=== PATIENT | male | born 1975 | race Caucasian/White ===

== ENCOUNTER → 2018-01-22 12:40 | Outpatient (CLI) | payer OTHER, SELFPAY ==
--- NOTE | 2018-01-22 12:41 | DI.ECHO.S_ITS ---
[facility]---------+ [facility] +---------+ : : [address] : : : : [id number] : : : : Phone: [phone]+ Echocardiogram Report + + :Name: WOODY LLOYD Study Date: 01/22/2018 Height: 74 in : :[facility] Weight: 248 lb : : Gender: Male BSA: 2.4 m2 : :: 1975 Age: 42 yrs BP: 118/76 mmHg: :Reason For Study: Chest pain : : Performed By: Constanza Moya : :Referring: MOISÉS DAVIS : + + Interpretation Summary The left ventricle is normal in size, wall thickness, and systolic function without any focal wall motion abnormalities with the ejection fraction visually estimated to be 60-65%. Assessment of diastolic parameters indicates normal left ventricular diastolic function and normal filling pressures. The right ventricle is normal in size and function. The right ventricular systolic pressure is estimated at 26 mmHg assuming a right atrial pressure of 3 mm Hg. Both atria are normal in size. There is no significant valvular heart disease. The aortic root, ascending aorta, and aortic arch are mildly enlarged. Procedure: A two-dimensional transthoracic echocardiogram with color flow and Doppler was performed. The study quality was technically adequate. There is no prior echocardiogram noted for this patient. The patient was in normal sinus rhythm during the exam. Left Ventricle: The left ventricle is normal in size, wall thickness, and systolic function without any focal wall motion abnormalities. The ejection fraction is estimated to be 60-65%. Assessment of diastolic parameters indicates normal left ventricular diastolic function and normal filling pressures. Right Ventricle: The right ventricle is normal in size and function. Atria: Both atria are normal in size. The interatrial septum is intact with no evidence for an atrial septal defect. Mitral Valve: The mitral valve is normal in structure and function. There is trace mitral regurgitation. Aortic Valve: The aortic valve is trileaflet. The aortic valve opens well. No aortic regurgitation is present. Tricuspid Valve: The tricuspid valve is normal in structure and function. There is trace tricuspid regurgitation. The right ventricular systolic pressure is estimated at 26 mmHg assuming a right atrial pressure of 3 mm Hg. Pulmonic Valve: The pulmonic valve is not well seen, but is grossly normal. There is trace pulmonic regurgitation. There is no significant valvular heart disease. Great Vessels: The aortic root is mildly dilated. The ascending aorta is mildly enlarged. The aortic arch is mildly enlarged. The IVC is of normal diameter and collapses greater than 50% with a sniff. This suggests a low right atrial pressure of 3 mm Hg. Pericardium/ Pleura There is no pericardial effusion. There is no pleural effusion. MMode/2D Measurements & Calculations LVIDd: 5.5 cm Ao root diam: 3.9 cm LVIDs: 3.8 cm Aortic Jxn: 2.8 cm FS: 31.2 % asc Aorta Diam: 3.8 cm EPSS: 0.99 cm Ao Arch Diam (Prox Trans): 3.2 cm IVSd: 0.80 cm LVPWd: 0.89 cm LV rendon. diameter/BSA (cm/m^2): 2.3 LV sys. diameter/BSA (cm/m^2): 1.6 LA dimension: 3.5 cm RA long axis: 4.4 cm LA A2 area: 20.9 cm2 RA area: 16.4 cm2 LA A4 area: 16.4 cm2 RA vol: 51.9 ml LA length (vol): 4.7 cm RA : 21.8 ml/m2 LA vol: 62.4 ml IVC diam: 1.6 cm LA vol index: 26.2 ml/m2 RVDd major: 5.1 cm RVD1 (basal): 3.5 cm RVD2 (mid): 3.2 cm TAPSE: 1.9 cm Doppler Measurements & Calculations Ao V2 max: 128.1 cm/sec MV E max oleg: 88.8 cm/sec Ao V2 mean: 87.0 cm/sec MV A max oleg: 56.4 cm/sec Ao max P.6 mmHg MV E/A: 1.6 Ao mean P.5 mmHg Med Peak E' Oleg: 9.1 cm/sec Ao V2 VTI: 25.1 cm E/E' med: 9.7 Lat Peak E' Oleg: 13.5 cm/sec E/E' lat: 6.6 E/e' average: 8.2 MV dec time: 0.20 sec MV P1/2t: 61.1 msec TR max oleg: 238.1 cm/sec MV P1/2t max oleg: 89.1 cm/sec TR max P.7 mmHg MVA(P1/2t): 3.6 cm2 PA V2 max: 72.9 cm/sec PA V2 mean: 48.0 cm/sec PA mean P.1 mmHg PA Accel Time: 0.17 sec Reading Physician:VENICE
== END ==
PROVIDERS: PCP Internal Medicine; Visit Provider Family Medicine
DX: R07.89 Other chest pain (principal)
CPT/HCPCS: 93016; 93017; 93018; 93306

== ENCOUNTER → 2018-03-25 13:44 | Outpatient (CLI) | payer OTHER, SELFPAY ==
--- NOTE | 2018-03-25 13:48 | DI.RAD.S_ITS ---
PROCEDURE: FL UPPER GI SMALL BOWEL INDICATIONS: Mid sternal chest pain COMPARISON: None. FINDINGS: KUB: Preprocedural aeronautical engineer film shows a normal bowel gas pattern. No suspicious abdominal calcifications. Visualized solid organ contours appear normal in size. No suspicious bony abnormalities. Esophagus: Air-contrast views demonstrate a normal mucosal pattern. On single-contrast views, there is normal peristalsis. No tertiary contractions or proximal escape seen. No fixed strictures, extrinsic mass effects, or diverticula. No hiatal hernias or elicited gastroesophageal reflux. Minimal residual barium contrast seen within the esophagus. Stomach: The gastric lumen is normally distensible, and demonstrates mild mucosal irregularity. The pylorus and duodenal bulb have a normal morphology. Small bowel: Duodenal folds appear normal in thickness. There is normal transit time of barium through the small intestine. Small bowel loops appear normal in caliber throughout. Jejunal and ileal folds are smooth and normal in thickness. No strictures, intraluminal masses, or extrinsic mass effects. The terminal ileum is identified and appears normal. IMPRESSION: Minimal retained barium contrast within the esophagus without mariann reflux identified. There is mild nonspecific mucosal irregularity of the stomach. Consider esophagogastroduodenoscopy (EGD) for further evaluation if not recently performed. Dictated by: Fabrice Kraus M.D. on 03/25/2018 at 16:05 Approved by: Fabrice Kraus M.D. on 03/25/2018 at 16:12
== END ==
PROVIDERS: PCP Internal Medicine; Visit Provider Specialist
DX: R07.89 Other chest pain (principal); R13.10 Dysphagia, unspecified; K29.70 Gastritis, unspecified, without bleeding
CPT/HCPCS: 74245

== ENCOUNTER 2018-05-02 06:41 | Day surgery (SDC) | payer OTHER, SELFPAY ==
--- NOTE | 2018-05-02 | PATH_ITS ---
[facility] Accession Number: [id number] . 01 Material submitted: . PART A: SMALL GASTRIC NODULE ON BODY PART B: RANDOM STOMACH BIOPSIES PART C: GE JUNCTION . 02 Diagnosis: A. Biopsy Small Gastric Nodule on Body: Small fundic gland polyp, negative for atypia. Negative for evidence of Helicobacter on H/E stain. Negative for intestinal metaplasia. . B. Random Stomach Biopsies: Mucosla hyperemia without associated significant inflammation involving fundic mucosa. Negative for evidence of Helicobacter on H/E stain. Negative for intestinal metaplasia. Negative for dysplasia and malignancy. . C. Gastroesophageal Junction Biopsies: Fragments of squamous mucosa and gastric-type mucosa, negative for specialized metaplasia of Velásquez's-type esophagus. Negative for dysplasia and malignancy. Negative for squamous intraepithelial eosinophils. MRV/05/06/2018 . 02 Electronically signed: . Héctor Art MD, Pathologist NPI- [id number] . 01 Gross description: . Received three formalin-filled containers, each labeled with the patient's name. . A. In a container labeled small gastric nodule on body are two 0.1 to 0.2 cm portions of tissue entirely submitted in cassette A. B. In a container labeled random stomach are two 0.2-0.3 cm portions of tissue entirely submitted in cassette B. C. In a container labeled GE junction are multiple less than 0.1 to 0.1 cm portions of tissue. Filtered, wrapped and entirely submitted in cassette C. ([facility]:[id number]) /MRV . 02 Pathologist provided ICD-10: K31.7 . 02 CPT . 818560, 577150, 693809 Performed at: 01 [place] [id number] MD Jaime Townsend MD Phone: [phone] Performed at: 02 [facility] [address] [address] [place] [id number] MD Gilberto Olivas MD Phone: [phone]
[2018-05-02 07:10] VITALS: BP 139/80; PULSE 72; TEMP 36.2; O2SAT 96; BMI 33.0
[2018-05-02] MEDS: SODIUM CHLORIDE 0.9% 1,000 ML 200 ML IV (07:30)
--- NOTE | 2018-05-02 08:22 | PM.HP.1 ---
History of Present Illness Date Patient Seen: 05/02/18 Time Patient Seen: 08:09 Chief complaint: egd [id number] Narrative: Patient is gentleman with dysphagia here for an EGD. He had a upper GI that showed no esophageal disease reflux or hiatal hernia but it has some abnormalities of the gastric folds. Patient History Family & Social History Social History: household members spouse Tobacco & Substance use: Smoking Status Current every day smoker Meds Home Medications Medication Instructions Recorded Confirmed Type ranitidine 15 mg/mL syrup 150 mg PO BID #480 ml 01/22/18 05/02/18 Rx diazepam 10 mg tablet 10 mg PO ONCE #2 tab 03/19/18 05/02/18 Rx cyclobenzaprine 5 mg PO TID 05/02/18 05/02/18 History Allergies Allergy/AdvReac Type Severity Reaction Status Date / Time omeprazole [OMEPRAZOLE] Allergy Severe HIVES, Verified 03/19/18 13:54 ITCHING Review of Systems Review of Systems All systems reviewed & are unremarkable except as noted in HPI and below Exam Vital Signs (past 8 hours): - 05/02/18 07:10 Temperature 97.1 F L Pulse Rate 72 Blood Pressure 139/80 Pulse Oximetry 96 Oxygen Delivery Method Room Air Narrative Exam Narrative: Operative no apparent distress. Eyes are nonicteric. Lungs are clear heart regular rate and rhythm without murmur gallop abdomen is soft nontender without mass alert and oriented x3. Assessment & Plan Plan: Assessment/Plan Narrative: Dysphagia. Discussed EGD with him possible dilatation risks of bleeding perforation discussed he wishes to proceed
--- NOTE | 2018-05-02 08:24 | PM.PREOP ---
Pre-operative Note Interval Note Pre-op Check: Yes History & Physical exam performed today by Physician Changes: No ASA Class (for procedural sedation): I
[2018-05-02] MEDS: TETRACAINE/BENZOCAINE/BUTAMBEN (CETACAINE) BOTTLE 1 SPRAY TOP (08:26)
[2018-05-02] MEDS: LIDOCAINE 4% SOLN 50 ML 20 ML TOP (08:27)
[2018-05-02] MEDS: MIDAZOLAM 5 MG/5 ML VIAL IV (08:35)
[2018-05-02] MEDS: fentaNYL 250 MCG/5 ML INJ IV (08:36)
[2018-05-02 08:55] VITALS: BP 123/76; PULSE 71; RESP 16; TEMP 36.3; O2SAT 96
--- NOTE | 2018-05-02 08:56 | P.OP.ENDO_ITS ---
Operative Date/Time/Diagnoses Date of procedure: 05/02/18 Time of procedure: 08:49 Pre-op diagnosis: Dysphagia Post-op diagnosis: same (Gastritis. Edema at the GE junction and pyloric channel.) Procedure & Clinicians Study performed: EGD with cold biopsies Same procedure as scheduled: Yes Indications: Dysphagia Surgeon: Javier Paniagua Procedure Notes SCOAP/Timeout: Performed Procedure in detail: The patient had topical anesthetic applied to oropharynx. She was placed in left lateral decubitus position and underwent IV sedation directed by the surgeon consisting of fentanyl and Versed. A bite block was inserted and the scope was advanced through it into the esophagus. The esophagus was unremarkable. GE junction was noted at 45 cm from the incisors. The stomach insufflated well. There were small punctate areas with blood on the surface scattered principally in the body. No other lesions were seen in the body, antrum or at the incisura. The pyloric channel was [edematous a narrowed but did not appear to be inflamed.]. The duodenum was unremarkable to the 4th part. The scope was brought back into the stomach and retroflexed. The proximal stomach was fairly normal except there was 1 small nodule seen on retroflexed view that is probably more in the body than the cardia. This was biopsied. Biopsies were also taken of the areas with the punctate blood on the surface. The scope was straightened and brought out through the esophagus again. Because of the edema at the GE junction I did take some random biopsies here. No lesions were seen. The scope was removed and the patient tolerated the procedure well. Scope withdrawal time: Not applicable Sedation minutes: 15 Findings: gastritis (Mild) Specimen(s): other (Random stomach, gastric nodule, GE junction) Complications: none Recommendations: Continue medication(s) (Proton pump inhibitor) Plan for aftercare: Follow-up with primary customer care team coach Follow up: as needed Disposition: same day surgery
[2018-05-02 09:05] VITALS: PULSE 60; RESP 16; O2SAT 97
[2018-05-02 09:06] VITALS: BP 111/74
== END 2018-05-02 09:16 | disposition home or self-care (01) ==
PROVIDERS: Family Provider Internal Medicine; PCP Internal Medicine; Visit Provider Specialist
PROC: 0DJ08ZZ Inspection of Upper Intestinal Tract, Via Natural or Artificial Opening Endoscopic (ICD-10-PCS; CPT 43235; principal; 2018-05-02 07:45)
DX: K29.70 Gastritis, unspecified, without bleeding (principal); F17.210 Nicotine dependence, cigarettes, uncomplicated; K31.7 Polyp of stomach and duodenum
CPT/HCPCS: 43239; 99152; J2250; J3010

== ENCOUNTER 2023-08-22 07:08 | Day surgery (SDC) | payer OTHER, SELFPAY ==
--- NOTE | 2023-08-22 | PATH_ITS ---
[facility] Accession Number: [id number] No. of containers..01 Tissue . 01 Material submitted: . gastrointestinal site - ANTRUM BIOPSY . 01 Diagnosis: Stomach, Antrum, Biopsy: Antral mucosa with reactive gastropathy and intestinal metaplasia. Negative for Helicobacter by immunohistochemistry. Negative for dysplasia and malignancy. MRV 08/30/2023 1439 Local . 01 Electronically signed: . Xochilt Hare MD, Pathologist NPI- [id number] . 01 Gross description: . ANTRUM BIOPSY: Received in formalin is multiple fragment(s) of gaston, soft tissue measuring 1.0 x 0.5 x 0.1 cm in aggregate submitted entirely in 1 cassette(s) /AA 08/23/2023 2238 Local . 01 Microscopic: . An immunohistochemical stain was performed to evaluate for Helicobacter organisms and is negative. The control stain showed appropriate reactivity. . * This test was developed and its performance characteristics determined by [facility]. It has not been cleared or approved by the U.S. Food and Drug Administration. The FDA has determined that such clearance or approval is not necessary. This test is used for clinical purposes. It should not be regarded as investigational or for research. . 01 Pathologist provided ICD-10: K31.A0 . 01 CPT . 652349, G21653 Specimen Comment: A courtesy copy of this report has been sent to [phone] Performed at: 01 [facility] [address] [place] [address], [place], [place] [id number] MD Jaime Townsend MD Phone: [phone]
[2023-08-22] MEDS: LACTATED RINGERS 1,000 ML 150 ML IV (07:27)
[2023-08-22 07:28] VITALS: BP 142/86; PULSE 71; RESP 16; TEMP 36.4; O2SAT 97; BMI 34.0
--- NOTE | 2023-08-22 08:06 | P.HP_ITS ---
History of Present Illness History of Present Illness Date Patient Seen: 08/22/23 Time Patient Seen: 08:06 Chief complaint: EGD w/poss bx Narrative: Ryan is a 48-year-old man with dysphagia and odynophagia. See office note from May for details. He has no changes to report since then. [facility] Medical History BMI 32.0-32.9,adult (~01/08/18) Current smoker (04/06/15) Dysphagia (07/30/16) Gastroesophageal reflux disease (07/30/16) Hyperlipemia Hypertension (04/06/15) Family History Grandmother Diabetes mellitus Grandfather No problems noted. Grandfather No problems noted. Mother Hypertension Social History household members: spouse Smoking Status: Former smoker alcohol intake: current Meds Home Medications and Allergies Home Medications Medication Instructions Recorded Confirmed Type cimetidine 800 mg tablet 800 mg PO DAILY 05/29/23 08/22/23 History Allergies Allergy/AdvReac Type Severity Reaction Status Date / Time No Known Drug Allergies Allergy Verified 08/22/23 07:25 Exam Vital Signs (past 8 hours): - 08/22/23 07:28 Temperature 97.6 F Pulse Rate 71 Respiratory Rate 16 Blood Pressure 142/86 H Pulse Oximetry 97 Oxygen Delivery Method Room Air Oxygen Delivery Method Room Air Const General: healthy appearing Assessment & Plan Assessment and plan (1) Dysphagia: Qualifiers: Dysphagia type: esophageal phase Qualified Code(s): R13.19 - Other dysphagia Status: Chronic Plan We reviewed the risks and benefits of esophagogastroduodenoscopy for dysphagia and odynophagia and he would like to proceed.
--- NOTE | 2023-08-22 08:35 | PM.OP.EGD ---
Operative Date/Time/Diagnoses Date of procedure: 08/22/23 Time of procedure: 08:35 Pre-op diagnosis: Dysphagia and odynophagia Post-op diagnosis: same Procedure & Clinicians Study performed: Esophagogastroduodenoscopy Same procedure as scheduled: Yes Surgeon: Cesar Engel Procedure Notes Procedure in detail: Surgeon: Cesar Engel MD Anesthesia: Amado Garcia CRNA A timeout was performed. A bite blocked was placed. The patient was positioned in the left lateral decubitus position. Anesthesia was administered. The endoscope was inserted through the bite block and passed through the esophagus and stomach and into the duodenum. The duodenal mucosa appeared normal. The scope was withdrawn into the duodenal bulb and no abnormalities were seen there. The scope was withdrawn into the stomach. There was some antritis and random biopsies were taken from the antrum. The rest of the stomach was normal. The scope was retroflexed and no hiatal hernia was seen. The scope was withdrawn into the esophagus and no abnormality was seen. The remainder of the esophagus was normal. The scope was withdrawn. The patient was awakened and brought to recovery. Sedation time: 8 minutes Findings: Antritis Post-procedure Disposition: PACU
[2023-08-22 08:38] VITALS: BP 104/69; PULSE 69; RESP 14; TEMP 36.2; O2SAT 93
[2023-08-22 08:44] VITALS: BP 132/49; PULSE 71; RESP 12; O2SAT 96
[2023-08-22 08:48] VITALS: BP 115/74; PULSE 74; RESP 18; O2SAT 96
[2023-08-22 09:02] VITALS: BP 124/79; PULSE 62; RESP 18; TEMP 36.1; O2SAT 96
== END 2023-08-22 09:07 | disposition home or self-care (01) ==
PROVIDERS: Family Provider Internal Medicine; PCP Internal Medicine; Referring Provider Surgery; Visit Provider Surgery
PROC: 0DJ08ZZ Inspection of Upper Intestinal Tract, Via Natural or Artificial Opening Endoscopic (ICD-10-PCS; CPT 43235; principal; 2023-08-22 08:15)
DX: R13.10 Dysphagia, unspecified (principal)
CPT/HCPCS: 43235